=== PATIENT | male | born 1995 | race Caucasian/White ===

== ENCOUNTER 2018-12-17 10:44 | Inpatient (IN) ==
--- NOTE | 2018-12-17 11:03 | Emergency Department Note ---
Disposition Clinical Impression: Suicidal ideation Urinary tract infection Qualifiers: Urinary tract infection type: acute cystitis Hematuria presence: without hematuria Qualified Code(s): N30.00 - Acute cystitis without hematuria Disposition: Admitted As Inpatient Condition: Fair Psych HPI - General Chief Complaint: ED Psychiatric Symptoms Stated Complaint: SI/HI Time Seen by Provider: 12/17/18 11:03 Source: patient Nursing Notes Reviewed: Yes Vital Signs Reviewed: Yes - History of Present Illness HPI Narrative: 23-year-old male presents emergency per concern for suicidal ideations. Patient does not have a specific plan in place, but has had thoughts in the past of using a gun. He is also having homicidal ideations well. He wants to kill his ex-girlfriend's new boyfriend. He does not have a plan to do that. Patient denies any visual hallucinations, but states that he is hearing voices even though he does not know what they are saying. Patient has not taken any other medications not prescribed at this time patient complains of nothing else at this time. - Related Data Home Medications Medication Instructions Recorded Confirmed No Known Home Drugs 12/17/18 12/17/18 Allergies Allergy/AdvReac Type Severity Reaction Status Date / Time No Known Allergies Allergy Verified 12/17/18 15:39 All systems ED: reviewed and negative except as stated. Review of Systems: As Per HPI Constitutional: Denies: fever Cardiovascular: Denies: chest pain Respiratory: Denies: dyspnea Gastrointestinal: Denies: abdominal pain, nausea, vomiting Genitourinary: Denies: dysuria Musculoskeletal: Denies: back pain Psychiatric: Reports: suicidal thoughts, homicidal thoughts, auditory hallucinations Past Medical History - Past Medical History Attestation: Yes The following information was validated with the patient. Medical history: Reports: no medical history Psychiatric history: Reports: no psych history - Social History Smoking Status: Current every day smoker Smokeless Tobacco Status: No Alcohol use: Reports: heavy, recent Drug use: Reports: marijuana Physical Exam - General Limitations: no limitations General appearance: alert, in no apparent distress - Head Head exam: normocephalic - Eye Eye exam: Present: EOMI - ENT ENT exam: mucous membranes moist - Neck Neck exam: Present: trachea midline - Chest Chest inspection: Present: symmetric chest wall rise - Respiratory Respiratory exam: Present: normal lung sounds bilaterally. Absent: respiratory distress, accessory muscle use - Cardiovascular Cardiovascular exam: Present: regular rate, normal rhythm, normal heart sounds - Abdominal Exam Abdominal exam: Present: soft, Non-Tender. Absent: distention, guarding, rebound, rigidity - Extremities Exam Extremities exam: Present: normal capillary refill - Back Exam Back exam: Present: full ROM - Neurological Exam Neurological exam: Present: alert, oriented X3 - Psychiatric Psychiatric exam: Present: homicidal ideation, suicidal ideation - Skin Skin exam: Present: warm, dry, intact, normal color. Absent: rash Course Vital Signs Temperature 98.7 F 12/17/18 10:50 Pulse Rate 129 12/17/18 10:50 Respiratory Rate 16 12/17/18 10:50 Blood Pressure 158/108 12/17/18 10:50 O2 Sat by Pulse Oximetry 96 12/17/18 10:50 Temperature 98.7 F 12/17/18 10:50 Pulse Rate 129 12/17/18 10:50 Respiratory Rate 16 12/17/18 10:50 Blood Pressure 158/108 12/17/18 10:50 O2 Sat by Pulse Oximetry 96 12/17/18 10:50 Oxygen Delivery Oxygen Delivery Room Air Psych - MDM Narrative Medical decision making narrative: 23-year-old male presents emergency Department concern for suicidal homicidal thoughts. Patient is medically stable not in acute distress. Urine appears to have infection. We have given Keflex in the emergency department. 4. We have also ordered a chlamydia and gonorrhea and do not have the results at this time. Patient does not have any other abnormal labs except for urine drug screen positive for amphetamines and THC. Our psychiatric team has come down to about the patient and they stated that what they will admit him under their service. Patient has been pink slipped. Hemodynamically stable not in acute distress at time of admission. - Lab Data Result diagrams: 12/17/18 11:21 12/17/18 11:21 Lab Results 12/17/18 12/17/18 12/17/18 Range/Units 11:21 11:21 12:22 WBC 13.5 H (4.3-11.1) K/mcL RBC 4.86 (4.19-5.50) M/mcL Hgb 14.9 (12.9-16.9) g/dL Hct 43.6 (37.5-50.1) % MCV 89.7 (83.0-100.0) fL MCH 30.7 (28.0-33.3) pg MCHC 34.2 (31.6-35.5) g/dL RDW 12.2 (11.5-14.5) % Plt Count 232 (140-400) K/mcL MPV 10.1 (9.4-12.4) fL Immature Gran % 0.3 (0-4) % Seg Neutrophils % 87.7 % Lymphocytes % 7.4 % Monocytes % 4.5 % Eosinophils % 0.0 % Basophils % 0.1 % Neutrophils # 11.8 H (1.6-8.9) K/mcL Lymphocytes # 1.0 (0.6-4.6) K/mcL Monocytes # 0.6 (0.0-1.3) K/mcL Eosinophils # 0.0 (0.0-0.6) K/mcL Basophils # 0.0 (0.0-0.2) K/mcL Sodium 137 (136-145) mEq/L Potassium 3.4 L (3.5-5.1) mEq/L Chloride 102 (98-107) mEq/L Carbon Dioxide 26 (23-29) mEq/L BUN 9 (6-20) mg/dL Creatinine 1.12 (0.70-1.30) mg/dL Est GFR ( Amer) > 60 (> 60) Est GFR (Non-Af Amer) > 60 (> 60) BUN/Creatinine Ratio 8 (6-26) Glucose 112 H (70-105) mg/dL Calculated Osmolality 283 (280-300) Calcium 9.8 (8.6-10.3) mg/dL Urine Color Dark Yellow (Yellow) Urine Clarity Turbid A (Clear) Urine pH 6.0 (5.0-8.0) pH Units Ur Specific [place] 1.026 H (1.010-1.025) Urine Protein 100 H (Neg-Trace) mg/dL Urine Glucose (UA) Normal (Normal) mg/dL Urine Ketones Trace H (Negative) mg/dL Urine Blood Negative (Negative) Urine Nitrite Negative (Negative) Urine Bilirubin Small H (Negative) Urine Urobilinogen Normal (Normal) mg/dL Ur Leukocyte Esterase Small H (Negative) Urine Microscopic RBC 15-30 H (0-3) per hpf Urine Microscopic WBC TNTC H (0-3) per hpf Ur Squamous Epith Cells Many H (None-Few) per lpf Amorphous Sediment Moderate H (Few) Urine Bacteria Moderate H (None-Few) per hpf Hyaline Casts Few (None-Few) per lpf Salicylates < 2.5 L (15.0-30.0) mg/dL Urine Opiates Screen (Hkmjok=261) ng/mL Acetaminophen < 10 L (10-20) mcg/mL Ur Barbiturates Screen (Kncerv=346) ng/mL Ur Phencyclidine Scrn (Cutoff=25) ng/mL Ur Amphetamines Screen (Svwsni=2236) ng/mL U Benzodiazepines Scrn (Spptjj=127) ng/mL Urine Cocaine Screen (Cutoff= 300) ng/mL U Marijuana (THC) Screen (Cutoff = 50) ng/mL Ur Drug Screen Interp Ethyl Alcohol < 10 (Less than 10) mg/dL 12/17/18 Range/Units 12:25 WBC (4.3-11.1) K/mcL RBC (4.19-5.50) M/mcL Hgb (12.9-16.9) g/dL Hct (37.5-50.1) % MCV (83.0-100.0) fL MCH (28.0-33.3) pg MCHC (31.6-35.5) g/dL RDW (11.5-14.5) % Plt Count (140-400) K/mcL MPV (9.4-12.4) fL Immature Gran % (0-4) % Seg Neutrophils % % Lymphocytes % % Monocytes % % Eosinophils % % Basophils % % Neutrophils # (1.6-8.9) K/mcL Lymphocytes # (0.6-4.6) K/mcL Monocytes # (0.0-1.3) K/mcL Eosinophils # (0.0-0.6) K/mcL Basophils # (0.0-0.2) K/mcL Sodium (136-145) mEq/L Potassium (3.5-5.1) mEq/L Chloride (98-107) mEq/L Carbon Dioxide (23-29) mEq/L BUN (6-20) mg/dL Creatinine (0.70-1.30) mg/dL Est GFR ( Amer) (> 60) Est GFR (Non-Af Amer) (> 60) BUN/Creatinine Ratio (6-26) Glucose (70-105) mg/dL Calculated Osmolality (280-300) Calcium (8.6-10.3) mg/dL Urine Color (Yellow) Urine Clarity (Clear) Urine pH (5.0-8.0) pH Units Ur Specific [place] (1.010-1.025) Urine Protein (Neg-Trace) mg/dL Urine Glucose (UA) (Normal) mg/dL Urine Ketones (Negative) mg/dL Urine Blood (Negative) Urine Nitrite (Negative) Urine Bilirubin (Negative) Urine Urobilinogen (Normal) mg/dL Ur Leukocyte Esterase (Negative) Urine Microscopic RBC (0-3) per hpf Urine Microscopic WBC (0-3) per hpf Ur Squamous Epith Cells (None-Few) per lpf Amorphous Sediment (Few) Urine Bacteria (None-Few) per hpf Hyaline Casts (None-Few) per lpf Salicylates (15.0-30.0) mg/dL Urine Opiates Screen Negative (Chdzgj=661) ng/mL Acetaminophen (10-20) mcg/mL Ur Barbiturates Screen Negative (Hnmiob=471) ng/mL Ur Phencyclidine Scrn Negative (Cutoff=25) ng/mL Ur Amphetamines Screen Positive H (Jjawms=9307) ng/mL U Benzodiazepines Scrn Negative (Ukwtck=772) ng/mL Urine Cocaine Screen Negative (Cutoff= 300) ng/mL U Marijuana (THC) Screen Positive H (Cutoff = 50) ng/mL Ur Drug Screen Interp See Below Ethyl Alcohol (Less than 10) mg/dL Psychiatric Medical Clearance - Medical Clearance Checklist Medical History: No Social History Section defined Current Vitals: Last Vital Signs Temp 98.7 F 12/17/18 10:50 Pulse 129 12/17/18 10:50 Resp 16 12/17/18 10:50 BP 158/108 12/17/18 10:50 Pulse Ox 96 12/17/18 10:50 Psychiatric Lab Panel: Drug Levels and Toxicity 12/17/18 12/17/18 11:21 12:25 Urine Opiates Screen Negative Acetaminophen < 10 L Ur Barbiturates Screen Negative Ur Phencyclidine Scrn Negative Ur Amphetamines Screen Positive H U Benzodiazepines Scrn Negative Urine Cocaine Screen Negative U Marijuana (THC) Screen Positive H Ethyl Alcohol < 10 Abnormal Labs: Abnormal lab results WBC 13.5 K/mcL (4.3-11.1) H 12/17/18 11:21 Neutrophils # 11.8 K/mcL (1.6-8.9) H 12/17/18 11:21 Potassium 3.4 mEq/L (3.5-5.1) L 12/17/18 11:21 Glucose 112 mg/dL (70-105) H 12/17/18 11:21 Urine Clarity Turbid (Clear) A 12/17/18 12:22 Ur Specific [place] 1.026 (1.010-1.025) H 12/17/18 12:22 Urine Protein 100 mg/dL (Neg-Trace) H 12/17/18 12:22 Urine Ketones Trace mg/dL (Negative) H 12/17/18 12:22 Urine Bilirubin Small (Negative) H 12/17/18 12:22 Ur Leukocyte Esterase Small (Negative) H 12/17/18 12:22 Urine Microscopic RBC 15-30 per hpf (0-3) H 12/17/18 12:22 Urine Microscopic WBC TNTC per hpf (0-3) H 12/17/18 12:22 Ur Squamous Epith Cells Many per lpf (None-Few) H 12/17/18 12:22 Amorphous Sediment Moderate (Few) H 12/17/18 12:22 Urine Bacteria Moderate per hpf (None-Few) H 12/17/18 12:22 Salicylates < 2.5 mg/dL (15.0-30.0) L 12/17/18 11:21 Acetaminophen < 10 mcg/mL (10-20) L 12/17/18 11:21 Ur Amphetamines Screen Positive ng/mL (Sdwzai=7118) H 12/17/18 12:25 U Marijuana (THC) Screen Positive ng/mL (Cutoff = 50) H 12/17/18 12:25 Statement of Medical Clearance: I have evaluated the patient, reviewed diagnostic information, and certify that the patient's medical condition is sufficiently stable that transfer to the psychiatric unit does not pose a significant risk of deterioration. Attestation Statement - Attestation Attestation: I, Leopoldo Saucedo DO, examined this patient [id number] and my medical decision-making was reviewed with Dr. Gerry Chin, Resident Physician. I agree with the documented findings, disposition and treatment plan as described except to the extent set forth below. I personally supervised and was present for the win/critical portions of the procedures completed by the resident documented below. Please see my progress notes for details.
[2018-12-17 11:41] LABS: Basophils % 0.1 %; Hematocrit 43.6 % (37.5-50.1); Hemoglobin 14.9 g/dL (12.9-16.9); Immature Granulocytes % 0.3 % (0-4); Lymphocytes % 7.4 %; Mean Corpuscular HGB Conc 34.2 g/dL (31.6-35.5); Mean Corpuscular Hemoglobin 30.7 pg (28.0-33.3); Mean Corpuscular Volume 89.7 fL (83.0-100.0); Mean Platelet Volume 10.1 fL (9.4-12.4); Monocytes # 0.6 K/mcL (0.0-1.3); Monocytes % 4.5 %; Neutrophils # 11.8 K/mcL (1.6-8.9); Platelet Count 232 K/mcL (140-400); Red Blood Count 4.86 M/mcL (4.19-5.50); Red Cell Distribution Width 12.2 % (11.5-14.5); Segmented Neutrophils % 87.7 %
[2018-12-17 11:59] LABS: Acetaminophen < 10 mcg/mL (10-20); BUN/Creatinine Ratio 8 (6-26); Blood Urea Nitrogen 9 mg/dL (6-20); Calcium 9.8 mg/dL (8.6-10.3); Carbon Dioxide 26 mEq/L (23-29); Chloride 102 mEq/L (98-107); Ethanol < 10 mg/dL (Less than 10); Glucose 112 mg/dL (70-105); Osmolality,Calculated 283 (280-300); Potassium 3.4 mEq/L (3.5-5.1); Salicylate < 2.5 mg/dL (15.0-30.0); Sodium 137 mEq/L (136-145); eGFR For Non-African Americans > 60 (> 60)
--- NOTE | 2018-12-17 12:38 | Emergency Department Note ---
Disposition Clinical Impression: Suicidal ideation, Urinary tract infection Disposition: Admitted As Inpatient Condition: Fair Referrals: NONE,PCP [Primary Care Provider] - Forms: ED Satisfaction Letter Time of Disposition: 15:18 General Adult HPI - General Chief complaint: ED Psychiatric Symptoms Stated complaint: SI/HI Time Seen by Provider: 12/17/18 11:03 Source: patient Limitations: no limitations - History of Present Illness Pain Scale: 0 - Related Data Previous Rx's Medication Instructions Recorded Cyclobenzaprine HCl 5 mg PO TID PRN #30 tablet 07/18/15 Hydrocodone/Acetaminophen [[place] 1 each PO Q4H PRN #10 tablet 07/18/15 5-325 Tablet] Ibuprofen [Motrin] 800 mg PO Q6-8H PRN #30 tablet 07/18/15 Allergies Allergy/AdvReac Type Severity Reaction Status Date / Time No Known Allergies Allergy Verified 07/18/15 17:30 Past Medical History - Past Medical History Medical history: Reports: no medical history Psychiatric history: Reports: no psych history - Social History Smoking Status: Current every day smoker Smokeless Tobacco Status: No Alcohol use: Reports: heavy, recent Drug use: Reports: marijuana Physical Exam - General Limitations: no limitations General appearance: alert, in no apparent distress Course Vital Signs Temperature 98.7 F 12/17/18 10:50 Pulse Rate 129 12/17/18 10:50 Respiratory Rate 16 12/17/18 10:50 Blood Pressure 158/108 12/17/18 10:50 O2 Sat by Pulse Oximetry 96 12/17/18 10:50 Temperature 98.7 F 12/17/18 10:50 Pulse Rate 129 12/17/18 10:50 Respiratory Rate 16 12/17/18 10:50 Blood Pressure 158/108 12/17/18 10:50 O2 Sat by Pulse Oximetry 96 12/17/18 10:50 Oxygen Delivery Oxygen Delivery Room Air Medical Decision Making - Lab Data Result diagrams: 12/17/18 11:21 12/17/18 11:21 Lab Results 12/17/18 12/17/18 12/17/18 Range/Units 11:21 11:21 12:22 WBC 13.5 H (4.3-11.1) K/mcL RBC 4.86 (4.19-5.50) M/mcL Hgb 14.9 (12.9-16.9) g/dL Hct 43.6 (37.5-50.1) % MCV 89.7 (83.0-100.0) fL MCH 30.7 (28.0-33.3) pg MCHC 34.2 (31.6-35.5) g/dL RDW 12.2 (11.5-14.5) % Plt Count 232 (140-400) K/mcL MPV 10.1 (9.4-12.4) fL Immature Gran % 0.3 (0-4) % Seg Neutrophils % 87.7 % Lymphocytes % 7.4 % Monocytes % 4.5 % Eosinophils % 0.0 % Basophils % 0.1 % Neutrophils # 11.8 H (1.6-8.9) K/mcL Lymphocytes # 1.0 (0.6-4.6) K/mcL Monocytes # 0.6 (0.0-1.3) K/mcL Eosinophils # 0.0 (0.0-0.6) K/mcL Basophils # 0.0 (0.0-0.2) K/mcL Sodium 137 (136-145) mEq/L Potassium 3.4 L (3.5-5.1) mEq/L Chloride 102 (98-107) mEq/L Carbon Dioxide 26 (23-29) mEq/L BUN 9 (6-20) mg/dL Creatinine 1.12 (0.70-1.30) mg/dL Est GFR ( Amer) > 60 (> 60) Est GFR (Non-Af Amer) > 60 (> 60) BUN/Creatinine Ratio 8 (6-26) Glucose 112 H (70-105) mg/dL Calculated Osmolality 283 (280-300) Calcium 9.8 (8.6-10.3) mg/dL Urine Color Dark Yellow (Yellow) Urine Clarity Turbid A (Clear) Urine pH 6.0 (5.0-8.0) pH Units Ur Specific [place] 1.026 H (1.010-1.025) Urine Protein 100 H (Neg-Trace) mg/dL Urine Glucose (UA) Normal (Normal) mg/dL Urine Ketones Trace H (Negative) mg/dL Urine Blood Negative (Negative) Urine Nitrite Negative (Negative) Urine Bilirubin Small H (Negative) Urine Urobilinogen Normal (Normal) mg/dL Ur Leukocyte Esterase Small H (Negative) Urine Microscopic RBC 15-30 H (0-3) per hpf Urine Microscopic WBC TNTC H (0-3) per hpf Ur Squamous Epith Cells Many H (None-Few) per lpf Amorphous Sediment Moderate H (Few) Urine Bacteria Moderate H (None-Few) per hpf Hyaline Casts Few (None-Few) per lpf Salicylates < 2.5 L (15.0-30.0) mg/dL Urine Opiates Screen (Hhvppv=197) ng/mL Acetaminophen < 10 L (10-20) mcg/mL Ur Barbiturates Screen (Ejmqvz=232) ng/mL Ur Phencyclidine Scrn (Cutoff=25) ng/mL Ur Amphetamines Screen (Pbbpte=2207) ng/mL U Benzodiazepines Scrn (Gkasvo=904) ng/mL Urine Cocaine Screen (Cutoff= 300) ng/mL U Marijuana (THC) Screen (Cutoff = 50) ng/mL Ur Drug Screen Interp Ethyl Alcohol < 10 (Less than 10) mg/dL 12/17/18 Range/Units 12:25 WBC (4.3-11.1) K/mcL RBC (4.19-5.50) M/mcL Hgb (12.9-16.9) g/dL Hct (37.5-50.1) % MCV (83.0-100.0) fL MCH (28.0-33.3) pg MCHC (31.6-35.5) g/dL RDW (11.5-14.5) % Plt Count (140-400) K/mcL MPV (9.4-12.4) fL Immature Gran % (0-4) % Seg Neutrophils % % Lymphocytes % % Monocytes % % Eosinophils % % Basophils % % Neutrophils # (1.6-8.9) K/mcL Lymphocytes # (0.6-4.6) K/mcL Monocytes # (0.0-1.3) K/mcL Eosinophils # (0.0-0.6) K/mcL Basophils # (0.0-0.2) K/mcL Sodium (136-145) mEq/L Potassium (3.5-5.1) mEq/L Chloride (98-107) mEq/L Carbon Dioxide (23-29) mEq/L BUN (6-20) mg/dL Creatinine (0.70-1.30) mg/dL Est GFR ( Amer) (> 60) Est GFR (Non-Af Amer) (> 60) BUN/Creatinine Ratio (6-26) Glucose (70-105) mg/dL Calculated Osmolality (280-300) Calcium (8.6-10.3) mg/dL Urine Color (Yellow) Urine Clarity (Clear) Urine pH (5.0-8.0) pH Units Ur Specific [place] (1.010-1.025) Urine Protein (Neg-Trace) mg/dL Urine Glucose (UA) (Normal) mg/dL Urine Ketones (Negative) mg/dL Urine Blood (Negative) Urine Nitrite (Negative) Urine Bilirubin (Negative) Urine Urobilinogen (Normal) mg/dL Ur Leukocyte Esterase (Negative) Urine Microscopic RBC (0-3) per hpf Urine Microscopic WBC (0-3) per hpf Ur Squamous Epith Cells (None-Few) per lpf Amorphous Sediment (Few) Urine Bacteria (None-Few) per hpf Hyaline Casts (None-Few) per lpf Salicylates (15.0-30.0) mg/dL Urine Opiates Screen Negative (Xdqxft=415) ng/mL Acetaminophen (10-20) mcg/mL Ur Barbiturates Screen Negative (Pvxjuw=146) ng/mL Ur Phencyclidine Scrn Negative (Cutoff=25) ng/mL Ur Amphetamines Screen Positive H (Osnwzp=4244) ng/mL U Benzodiazepines Scrn Negative (Sjdzmw=477) ng/mL Urine Cocaine Screen Negative (Cutoff= 300) ng/mL U Marijuana (THC) Screen Positive H (Cutoff = 50) ng/mL Ur Drug Screen Interp See Below Ethyl Alcohol (Less than 10) mg/dL Attestation Statement - Attestation Attestation: I, Leopoldo Saucedo DO, examined this patient [id number] and my medical decision-making was reviewed with Dr. Gerry Chin, Resident Physician. I agree with the documented findings, disposition and treatment plan as described except to the extent set forth below. I personally supervised and was present for the win/critical portions of the procedures completed by the resident documented below. Please see my progress notes for details. 21-year-old male presents emergency room for evaluation of suicidal ideation auditory hallucinations substance abuse ingestion. Patient is denying chest pain shortness of breath headache or vision change. Denies any nausea vomiting or diarrhea. He has not had any recent fevers or chills. Denies any other symptoms or issues on presentation. Patient does disclose that he hears things throughout the day that are not there. He has not seen anything specifically at this time. Patient denies any other complaints or issues. He denies any ingestion at this point. Vital signs otherwise stable. Medical screening evaluation will be completed. Patient's lungs are clear heart is regular no signs of trauma or injury to the skin. No rashes or lesions. No signs of trauma to the head. Disposition will be determined once full workup treatment course and evaluation have been established by the psychiatric team. Is otherwise stable. See detailed documentation of the physical exam, medical intervention, medical decision-making disposition in the resident physician's note. No critical care applied the patient's treatment course at this time. 1415 Patient will be evaluated by psychiatric team at this time. 1500 Patient evaluated and accepted to the psychiatric suite for admission. Admission process to be established at this time. First dose of antibiotics for concern for possible urinary tract infection secondary to contamination of the urine was started. No other concerns or issues noted this time.
[2018-12-17 12:44] LABS: Bilirubin,Urine Small (Negative); Blood,Urine Negative (Negative); Clarity,Urine Turbid (Clear); Color,Urine Dark Yellow (Yellow); Glucose,Urine (UA) Normal (Normal); Ketones,Urine Trace mg/dL (Negative); Leukocyte Esterase,Urine Small (Negative); Nitrite,Urine Negative (Negative); Protein,Urine 100 mg/dL (Neg-Trace); Specific Gravity,Urine 1.026 (1.010-1.025); Urobilinogen,Urine Normal (Normal)
[2018-12-17 12:46] LABS: RBC,Urine 15-30 per hpf (0-3); Squamous Epithelial Cell,Urine Many per lpf (None-Few); WBC,Urine TNTC per hpf (0-3)
[2018-12-17 13:03] LABS: Hyaline Casts,Urine Few per lpf (None-Few)
[2018-12-17 13:05] LABS: Amorphous Sediment,Urine Moderate (Few); Bacteria,Urine Moderate per hpf (None-Few)
[2018-12-17 13:22] LABS: Amphetamine Screen,Urine Positive ng/mL (Cutoff=1000); Barbiturate Screen,Urine Negative ng/mL (Cutoff=200); Benzodiazepines Screen,Urine Negative ng/mL (Cutoff=200); Cannabinoid Screen,Urine Positive ng/mL (Cutoff = 50); Cocaine Screen,Urine Negative ng/mL (Cutoff= 300); Opiate Screen,Urine Negative ng/mL (Cutoff=300); Phencyclidine Screen,Urine Negative ng/mL (Cutoff=25)
[2018-12-17] MEDS ORDERED: cephALEXin 250 MG CAPSULE PO STA (15:13)
[2018-12-17] MEDS ORDERED: Mag Hydrox/Al Hydrox/Simeth 30 ML UDC PO PRN (16:13)
[2018-12-17] MEDS ORDERED: MOM Conc 10 ML UD.LIQ PO PRN (16:13)
[2018-12-17] MEDS ORDERED: *HR* LORazepam 2 MG/ML VIAL IM PRN (16:13)
[2018-12-17] MEDS ORDERED: Ibuprofen 400 MG TABLET PO PRN (16:13)
[2018-12-17] MEDS ORDERED: *HR* LORazepam 1 MG TABLET PO PRN (16:13)
[2018-12-17] MEDS ORDERED: Haloperidol Lactate 5 MG/ML VIAL IM PRN (16:13)
[2018-12-17] MEDS: hydrOXYzine pamoate 25 MG CAPSULE PO PRN (21:19)
[2018-12-17] MEDS: traZODone 50 MG TABLET PO PRN (21:19)
--- NOTE | 2018-12-18 09:05 | Psychiatry History & Physical ---
Date of Encounter: 12/18/18 Time of Encounter: 09:01 History of Present Illness Patient Stated Chief Complaint: "I want to kill myself" Medicare Admission Attestation: For traditional Medicare patients the provided hospital inpatient services are reasonable and necessary and in the case of services not specified as inpatient-only under 42 CFR 419.22 (n), that they are appropriately provided as inpatient services in accordance 42 CFR 412.3. For Critical Access Hospital the patient may reasonably be expected to be discharged or transferred to a hospital within 96 hours after admission to the Critical Access Hospital. Admitted From: Home Plans for Post Hospital Care: Home History of Present Illness: Mr. Mann is a 23 year old male who presented to the emergency per concern for suicidal ideations with a plan of using a gun (doesn't current have a gun or immediate access but says he knows how to). He is also having homicidal ideations well. He wants to kill his ex-girlfriend's new boyfriend. He does not have a plan to do that. Patient denies any visual hallucinations, but states that he is hearing voices even though he does not know what they are saying. Patient has not taken any other medications not prescribed at this time patient complains of nothing else at this time. He reports sad mood, decreased interests, feelings of guilt and worthlessness, low energy and hopelessness. He denies a history of ashleigh. He reports some vague AH, non-command. No VH. Has exhibited some paranoia on the unit. Says he does feel he can't trust anyone. Past Med Surg Social Fam HX - Past Medical History Source: patient, old records reviewed Medical history: no medical history - Past Psychiatric History Psychiatric history: Reports: depression. Denies: prior suicide attempt, previous psychiatric hospitalization Past psychiatric history details: Says he was seen in [facility] several years ago. He says he was on an antidepressant at that time but couldn't remember the name even with me listing options. He has no prior suicide attempts or hospitalizations. Family psychiatric history: Yes (dad's side etoh) Family History of Suicide: None - Past Surgical History Surgical History: no surgical history - Social History Smoking Status: Current every day smoker Packs per day: <0.5 Smokeless Tobacco Status: No Alcohol use: heavy, recent Drug use: marijuana, methamphetamine Additional substance use detail: meth on the day prior to admission. Daily THC, daily etoh <6, no hx of withdrawal. Occupational status: employed Activity Level: Independent ambulation Recent Out of Country Travel Within the Last 8 Weeks: No Exposure or Possible Exposure to Illness During Travel: No Additional social history: Patient reports he lives with his mom and dad. 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 His 3 year old daughter lives with him. Medications & Allergies No Known Home Drugs 12/17/18 [History] Allergy/AdvReac Type Severity Reaction Status Date / Time No Known Allergies Allergy Verified 12/17/18 15:39 Review of Systems Constitutional: Denies: fever Eyes: Denies: eye pain Ears, Nose, Throat: Denies: ear pain Cardiovascular: Denies: chest pain Respiratory: Denies: cough Gastrointestinal: Denies: abdominal pain Genitourinary male: Reports: urgency, dysuria (treated for UTI in ER) Musculoskeletal: Denies: back pain Integumentary: Denies: rash Neurological: Denies: headache Psychiatric: Reports: depression, abnormal sleep pattern, suicidal ideation, change in appetite, homicidal ideation, auditory hallucinations Endocrine: Reports: fatigue Hematologic/Lymphatic: Denies: easy bleeding Allergic/Immunologic: Denies: facial swelling Exam - HEENT Head exam IM: Present: atraumatic Eye exam IM: Present: normal appearance ENT exam IM: Present: mucous membranes moist - Neurological Neurological exam: Present: CN II-XII intact (grossly) - Respiratory Respiratory exam IM: Absent: respiratory distress - GI/Abdominal GI/Abdominal exam IM: Present: no peritoneal signs - Extremities Extremities exam IM: Absent: cyanotic - Skin Skin exam IM: Absent: abrasion - Constitutional Vitals: Temp Pulse Resp BP Pulse Ox 98.7 F 129 16 158/108 96 12/17/18 10:50 12/17/18 10:50 12/17/18 10:50 12/17/18 10:50 12/17/18 10:50 General appearance: age & developmentally appropriate - Musculoskeletal Gait: normal Station: other Strength & Tone: normal for patient - Psychiatric Patient Orientation: Yes Person, Yes Time, Yes Place Level of alertness: Alert Behavior: calm Psychomotor activity: Normal Eye Contact: Maintains Eye Contact Mood Description: Depressed Patient description of mood: "down" Affect description: dysphoric Speech Volume: Soft/Quiet Speech pattern: normal rate Language & Vocabulary: consistent with education Thought Process: Logical Thought Content: Yes Suicidal ideation, Yes Homicidal ideation, Yes Preoccupation Perceptual Disturbances: Yes Auditory hallucinations Attention Span Ability: Capable of Focused Attention Memory Description: Grossly Intact Patient Reliability: Reliable Historian Fund of knowledge: Yes abstraction ability, Yes average Intelligence Estimate: Average Judgment: Limited Insight: Minimal Results - Drug Levels and Toxicology Drug Levels and Toxicology: Drug Levels and Toxicity 12/17/18 12/17/18 11:21 12:25 Urine Opiates Screen Negative Acetaminophen < 10 L Ur Barbiturates Screen Negative Ur Phencyclidine Scrn Negative Ur Amphetamines Screen Positive H U Benzodiazepines Scrn Negative Urine Cocaine Screen Negative U Marijuana (THC) Screen Positive H Ethyl Alcohol < 10 All Lab Results (24 Hours) 12/17/18 12/17/18 12/17/18 Range/Units 11:21 11:21 12:22 WBC 13.5 H (4.3-11.1) K/mcL RBC 4.86 (4.19-5.50) M/mcL Hgb 14.9 (12.9-16.9) g/dL Hct 43.6 (37.5-50.1) % MCV 89.7 (83.0-100.0) fL MCH 30.7 (28.0-33.3) pg MCHC 34.2 (31.6-35.5) g/dL RDW 12.2 (11.5-14.5) % Plt Count 232 (140-400) K/mcL MPV 10.1 (9.4-12.4) fL Immature Gran % 0.3 (0-4) % Seg Neutrophils % 87.7 % Lymphocytes % 7.4 % Monocytes % 4.5 % Eosinophils % 0.0 % Basophils % 0.1 % Neutrophils # 11.8 H (1.6-8.9) K/mcL Lymphocytes # 1.0 (0.6-4.6) K/mcL Monocytes # 0.6 (0.0-1.3) K/mcL Eosinophils # 0.0 (0.0-0.6) K/mcL Basophils # 0.0 (0.0-0.2) K/mcL Sodium 137 (136-145) mEq/L Potassium 3.4 L (3.5-5.1) mEq/L Chloride 102 (98-107) mEq/L Carbon Dioxide 26 (23-29) mEq/L BUN 9 (6-20) mg/dL Creatinine 1.12 (0.70-1.30) mg/dL Est GFR ( Amer) > 60 (> 60) Est GFR (Non-Af Amer) > 60 (> 60) BUN/Creatinine Ratio 8 (6-26) Glucose 112 H (70-105) mg/dL Calculated Osmolality 283 (280-300) Calcium 9.8 (8.6-10.3) mg/dL Urine Color Dark Yellow (Yellow) Urine Clarity Turbid A (Clear) Urine pH 6.0 (5.0-8.0) pH Units Ur Specific Sharon 1.026 H (1.010-1.025) Urine Protein 100 H (Neg-Trace) mg/dL Urine Glucose (UA) Normal (Normal) mg/dL Urine Ketones Trace H (Negative) mg/dL Urine Blood Negative (Negative) Urine Nitrite Negative (Negative) Urine Bilirubin Small H (Negative) Urine Urobilinogen Normal (Normal) mg/dL Ur Leukocyte Esterase Small H (Negative) Urine Microscopic RBC 15-30 H (0-3) per hpf Urine Microscopic WBC TNTC H (0-3) per hpf Ur Squamous Epith Cells Many H (None-Few) per lpf Amorphous Sediment Moderate H (Few) Urine Bacteria Moderate H (None-Few) per hpf Hyaline Casts Few (None-Few) per lpf Salicylates < 2.5 L (15.0-30.0) mg/dL Urine Opiates Screen (Negoqv=580) ng/mL Acetaminophen < 10 L (10-20) mcg/mL Ur Barbiturates Screen (Uuoqfr=128) ng/mL Ur Phencyclidine Scrn (Cutoff=25) ng/mL Ur Amphetamines Screen (Esqmhs=5715) ng/mL U Benzodiazepines Scrn (Tbkdkk=408) ng/mL Urine Cocaine Screen (Cutoff= 300) ng/mL U Marijuana (THC) Screen (Cutoff = 50) ng/mL Ur Drug Screen Interp Ethyl Alcohol < 10 (Less than 10) mg/dL 12/17/18 Range/Units 12:25 WBC (4.3-11.1) K/mcL RBC (4.19-5.50) M/mcL Hgb (12.9-16.9) g/dL Hct (37.5-50.1) % MCV (83.0-100.0) fL MCH (28.0-33.3) pg MCHC (31.6-35.5) g/dL RDW (11.5-14.5) % Plt Count (140-400) K/mcL MPV (9.4-12.4) fL Immature Gran % (0-4) % Seg Neutrophils % % Lymphocytes % % Monocytes % % Eosinophils % % Basophils % % Neutrophils # (1.6-8.9) K/mcL Lymphocytes # (0.6-4.6) K/mcL Monocytes # (0.0-1.3) K/mcL Eosinophils # (0.0-0.6) K/mcL Basophils # (0.0-0.2) K/mcL Sodium (136-145) mEq/L Potassium (3.5-5.1) mEq/L Chloride (98-107) mEq/L Carbon Dioxide (23-29) mEq/L BUN (6-20) mg/dL Creatinine (0.70-1.30) mg/dL Est GFR ( Amer) (> 60) Est GFR (Non-Af Amer) (> 60) BUN/Creatinine Ratio (6-26) Glucose (70-105) mg/dL Calculated Osmolality (280-300) Calcium (8.6-10.3) mg/dL Urine Color (Yellow) Urine Clarity (Clear) Urine pH (5.0-8.0) pH Units Ur Specific Sharon (1.010-1.025) Urine Protein (Neg-Trace) mg/dL Urine Glucose (UA) (Normal) mg/dL Urine Ketones (Negative) mg/dL Urine Blood (Negative) Urine Nitrite (Negative) Urine Bilirubin (Negative) Urine Urobilinogen (Normal) mg/dL Ur Leukocyte Esterase (Negative) Urine Microscopic RBC (0-3) per hpf Urine Microscopic WBC (0-3) per hpf Ur Squamous Epith Cells (None-Few) per lpf Amorphous Sediment (Few) Urine Bacteria (None-Few) per hpf Hyaline Casts (None-Few) per lpf Salicylates (15.0-30.0) mg/dL Urine Opiates Screen Negative (Dliyeg=594) ng/mL Acetaminophen (10-20) mcg/mL Ur Barbiturates Screen Negative (Aintfu=534) ng/mL Ur Phencyclidine Scrn Negative (Cutoff=25) ng/mL Ur Amphetamines Screen Positive H (Gcmhve=6319) ng/mL U Benzodiazepines Scrn Negative (Phiwcv=266) ng/mL Urine Cocaine Screen Negative (Cutoff= 300) ng/mL U Marijuana (THC) Screen Positive H (Cutoff = 50) ng/mL Ur Drug Screen Interp See Below Ethyl Alcohol (Less than 10) mg/dL - Labs Labs: Laboratory Last Values WBC 13.5 K/mcL (4.3-11.1) H 12/17/18 11:21 RBC 4.86 M/mcL (4.19-5.50) 12/17/18 11:21 Hgb 14.9 g/dL (12.9-16.9) 12/17/18 11:21 Hct 43.6 % (37.5-50.1) 12/17/18 11:21 MCV 89.7 fL (83.0-100.0) 12/17/18 11:21 MCH 30.7 pg (28.0-33.3) 12/17/18 11:21 MCHC 34.2 g/dL (31.6-35.5) 12/17/18 11:21 RDW 12.2 % (11.5-14.5) 12/17/18 11:21 Plt Count 232 K/mcL (140-400) 12/17/18 11:21 MPV 10.1 fL (9.4-12.4) 12/17/18 11:21 Immature Gran % 0.3 % (0-4) 12/17/18 11:21 Seg Neutrophils % 87.7 % 12/17/18 11:21 Lymphocytes % 7.4 % 12/17/18 11:21 Monocytes % 4.5 % 12/17/18 11:21 Eosinophils % 0.0 % 12/17/18 11:21 Basophils % 0.1 % 12/17/18 11:21 Neutrophils # 11.8 K/mcL (1.6-8.9) H 12/17/18 11:21 Lymphocytes # 1.0 K/mcL (0.6-4.6) 12/17/18 11:21 Monocytes # 0.6 K/mcL (0.0-1.3) 12/17/18 11:21 Eosinophils # 0.0 K/mcL (0.0-0.6) 12/17/18 11:21 Basophils # 0.0 K/mcL (0.0-0.2) 12/17/18 11:21 Sodium 137 mEq/L (136-145) 12/17/18 11:21 Potassium 3.4 mEq/L (3.5-5.1) L 12/17/18 11:21 Chloride 102 mEq/L (98-107) 12/17/18 11:21 Carbon Dioxide 26 mEq/L (23-29) 12/17/18 11:21 BUN 9 mg/dL (6-20) 12/17/18 11:21 Creatinine 1.12 mg/dL (0.70-1.30) 12/17/18 11:21 Est GFR ( Amer) > 60 (> 60) 12/17/18 11:21 Est GFR (Non-Af Amer) > 60 (> 60) 12/17/18 11:21 BUN/Creatinine Ratio 8 (6-26) 12/17/18 11:21 Glucose 112 mg/dL (70-105) H 12/17/18 11:21 Calculated Osmolality 283 (280-300) 12/17/18 11:21 Calcium 9.8 mg/dL (8.6-10.3) 12/17/18 11:21 Urine Color Dark Yellow (Yellow) 12/17/18 12:22 Urine Clarity Turbid (Clear) A 12/17/18 12:22 Urine pH 6.0 pH Units (5.0-8.0) 12/17/18 12:22 Ur Specific Sharon 1.026 (1.010-1.025) H 12/17/18 12:22 Urine Protein 100 mg/dL (Neg-Trace) H 12/17/18 12:22 Urine Glucose (UA) Normal mg/dL (Normal) 12/17/18 12:22 Urine Ketones Trace mg/dL (Negative) H 12/17/18 12:22 Urine Blood Negative (Negative) 12/17/18 12:22 Urine Nitrite Negative (Negative) 12/17/18 12:22 Urine Bilirubin Small (Negative) H 12/17/18 12:22 Urine Urobilinogen Normal mg/dL (Normal) 12/17/18 12:22 Ur Leukocyte Esterase Small (Negative) H 12/17/18 12:22 Urine Microscopic RBC 15-30 per hpf (0-3) H 12/17/18 12:22 Urine Microscopic WBC TNTC per hpf (0-3) H 12/17/18 12:22 Ur Squamous Epith Cells Many per lpf (None-Few) H 12/17/18 12:22 Amorphous Sediment Moderate (Few) H 12/17/18 12:22 Urine Bacteria Moderate per hpf (None-Few) H 12/17/18 12:22 Hyaline Casts Few per lpf (None-Few) 12/17/18 12:22 Salicylates < 2.5 mg/dL (15.0-30.0) L 12/17/18 11:21 Urine Opiates Screen Negative ng/mL (Xcmjdn=785) 12/17/18 12:25 Acetaminophen < 10 mcg/mL (10-20) L 12/17/18 11:21 Ur Barbiturates Screen Negative ng/mL (Fcgtqv=033) 12/17/18 12:25 Ur Phencyclidine Scrn Negative ng/mL (Cutoff=25) 12/17/18 12:25 Ur Amphetamines Screen Positive ng/mL (Xkuhyp=4161) H 12/17/18 12:25 U Benzodiazepines Scrn Negative ng/mL (Qqhjix=120) 12/17/18 12:25 Urine Cocaine Screen Negative ng/mL (Cutoff= 300) 12/17/18 12:25 U Marijuana (THC) Screen Positive ng/mL (Cutoff = 50) H 12/17/18 12:25 Ur Drug Screen Interp See Below 12/17/18 12:25 Ethyl Alcohol < 10 mg/dL (Less than 10) 12/17/18 11:21 Assessment and Plan (1) Depression Current visit: Yes Status: Acute Plan: Admit inpatient for safety and stabilization, Close observation, Suicide Precautions per unit protocol, Encourage participation in unit milieu, Group T herapy, Monitor sleep, Monitor appetite Additional Plan: Start zoloft 50mg am for depression. Reviewed Interval hx Review any current labs Pt had an opportunity to ask questions and discuss current treatment plan. Supportive therapy was provided Pt encouraged to consider group or individual therapy Pt was in agreement with treatment plan. Pt was educated on the risks benefits and side effects of current medications and alternatives as well as the risks and benefits of no medication. Risks, benefits, side effects, alternatives discussed w/pt: Yes Patient agreeable to treatment: Yes Plans for Post Hospital Care: Home Estimated Length of Stay (Days): 3 Qualifiers: Depression Type: major depressive disorder Major depression recurrence: recurrent Active/Remission status: currently active Major depression episode severity: severe Psychotic features: without psychotic features Qualified Code(s): F33.2 - Major depressive disorder, recurrent severe without psychotic features
[2018-12-18] MEDS: hydrOXYzine pamoate 25 MG CAPSULE PO PRN (21:39)
[2018-12-18] MEDS: traZODone 50 MG TABLET PO PRN (21:39)
--- NOTE | 2018-12-19 11:34 | Psychiatry Progress Note ---
Date of Encounter: 12/19/18 Time of Encounter: 08:30 Subjective Interval history: Mr. Mann is a 23 year old male that was admitted for suicidal and homicidal ideation, along with drug use and alcohol abuse. Patient is currently denying suicidal and homicidal ideation and auditory and visual hallucinations. He is also denying changes in appetite. He reports no side effects of his medications and reports that he thinks they are working well. Denying any withdrawal symptoms. Patient is requesting HIV and STD testing. His plan when he leaves is to see his daughter and see if he still has a job (works at a [employer] plant). Review of Systems Psychiatric: Reports: depression, abnormal sleep pattern. Denies: suicidal ideation, change in appetite, homicidal ideation, auditory hallucinations Results - Vital Signs Vital Signs: Temp Pulse Resp BP Pulse Ox 98.2 F 98 16 117/83 99 12/19/18 09:00 12/19/18 09:00 12/19/18 09:00 12/19/18 09:00 12/19/18 09:00 Assessment and Plan (1) Suicidal ideation Current visit: Yes Status: Acute Plan: Continue hospitalization, Close observation, Suicide Precautions per unit protocol, Encourage participation in unit milieu, Group Therapy, Monitor sleep, Monitor appetite Additional Plan: 1. Patient is currently denying suicidal ideation, but did admit to it yesterday. Would like to keep patient at least one more day for monitoring. 2. Continue current medications as prescribed. 3. Encourage group participation. 4. Will continue to monitor. 5. Anticipate discharge tomorrow, pending patient's continued improvement. (2) Depression Current visit: Yes Status: Acute Additional Plan: Please see above plan. Risks, benefits, side effects, alternatives discussed w/pt: Yes Patient agreeable to treatment: Yes Qualifiers: Depression Type: major depressive disorder Major depression recurrence: recurrent Active/Remission status: currently active Major depression episode severity: severe Psychotic features: without psychotic features Qualified Code(s): F33.2 - Major depressive disorder, recurrent severe without psychotic features (3) Screening for STD (sexually transmitted disease) Current visit: Yes Status: Acute Additional Plan: Patient would like to be tested for STDs since he feels that he may have been exposed to them. Will do an STD screen. Consult Discharge Plan - Plan Referrals: [facility] [Outside] - 12/31/18 2:30 pm (You have an appointment scheduled for Monday, December 31, 2018 at 2:30 PM with Khadra Raymond for an initial intake assessment. This appointment typically takes 1 1 hours and will cover your current symptoms and goals for treatment. Please complete the New Patient Intake Packet provided to you by [facility] staff and bring this with you to this appointment. Please also bring your insurance card, identification, proof of residence (utility bill or similar piece of mail), and proof of income (if applicable). If you are unable to keep this appointment, please call the office at the number above as soon as possible.) Nasim Alejandro, [Resident] - (Please contact the office at the number above and follow up with your primary care provider as needed. Please keep your primary care provider informed of any changes in your medications or medical conditions. ) - Attending Attestation I examined this patient and my medical decision-making was reviewed with the Resident Physician. I agree with the documented findings, disposition and treatment plan as described except to the extent set forth below. Patient doing well. Calm and cooperative. Psychiatry Exam - Constitutional Vitals: Temp Pulse Resp BP Pulse Ox 98.2 F 98 16 117/83 99 12/19/18 09:00 12/19/18 09:00 12/19/18 09:00 12/19/18 09:00 12/19/18 09:00 General appearance: age & developmentally appropriate Additional observations: Tattoos all over body, including face. - Musculoskeletal Gait: normal Station: relaxed Strength & Tone: normal for patient - Psychiatric Level of alertness: Alert, Follows commands Behavior: calm, cooperative Psychomotor activity: Normal Eye Contact: Maintains Eye Contact Mood Description: Euthymic/stable Patient description of mood: "just woke up" Affect description: euthymic Speech Volume: Normal Speech pattern: normal rate, normal rhythm Language & Vocabulary: consistent with education Thought Process: Intact, Linear, Goal Oriented Thought Content: Yes Intact, No Suicidal ideation, No Homicidal ideation Perceptual Disturbances: No Reacting to internal stimuli Attention Span Ability: Capable of Focused Attention Memory Description: Grossly Intact Patient Reliability: Questionable Historian Fund of knowledge: Yes average Intelligence Estimate: Average Judgment: Fair Insight: Partial
[2018-12-19] MEDS: traZODone 50 MG TABLET PO PRN (21:33)
[2018-12-19] MEDS: hydrOXYzine pamoate 25 MG CAPSULE PO PRN (21:33)
--- NOTE | 2018-12-20 08:21 | Discharge Summary ---
Date of Encounter: 12/20/18 Time of Encounter: 08:19 Diagnosis - Discharge Diagnosis (1) Depression Status: Acute Qualifiers: Depression Type: major depressive disorder Major depression recurrence: r ecurrent Active/Remission status: currently active Major depression episode severity: severe Psychotic features: without psychotic features Qualified Code(s): F33.2 - Major depressive disorder, recurrent severe without psychotic features Medications - Discharge Medications Prescriptions: hydrOXYzine pamoate [HydrOXYzine Pamoate] 25 mg PO TID PRN #15 capsule PRN Reason: Anxiety Sertraline [Zoloft] 50 mg PO DAILY #15 tablet traZODone [TraZODone] 50 mg PO HS PRN #15 tablet PRN Reason: Insomnia Sertraline [Zoloft] 50 mg PO DAILY #15 tablet 12/20/18 [Rx] hydrOXYzine pamoate [HydrOXYzine Pamoate] 25 mg PO TID PRN #15 capsule 12/20/18 [Rx] traZODone [TraZODone] 50 mg PO HS PRN #15 tablet 12/20/18 [Rx] Allergy/AdvReac Type Severity Reaction Status Date / Time No Known Allergies Allergy Verified 12/17/18 15:39 Results Procedures and tests throughout hospitalization: Completed Lab Orders Category Date Time Status Acetaminophen Stat Lab 12/17/18 11:21 Completed Basic Metabolic Panel Stat Lab 12/17/18 11:21 Completed Complete Blood Count [HEME] Stat Lab 12/17/18 11:21 Completed Drug Screen, Urine [UCHEM] Stat Lab 12/17/18 12:25 Completed Ethanol Stat Lab 12/17/18 11:21 Completed RPR [Treponema Pallidum Ab] Routine Lab 12/19/18 12:49 Completed Salicylate Stat Lab 12/17/18 11:21 Completed Urinalysis reflex Microscopic [URIN] Stat Lab 12/17/18 12:22 Completed Laboratory Results - last 72 hr 12/17/18 12/17/18 12/17/18 11:21 11:21 12:22 WBC 13.5 H RBC 4.86 Hgb 14.9 Hct 43.6 MCV 89.7 MCH 30.7 MCHC 34.2 RDW 12.2 Plt Count 232 MPV 10.1 Immature Gran % 0.3 Seg Neutrophils % 87.7 Lymphocytes % 7.4 Monocytes % 4.5 Eosinophils % 0.0 Basophils % 0.1 Neutrophils # 11.8 H Lymphocytes # 1.0 Monocytes # 0.6 Eosinophils # 0.0 Basophils # 0.0 Sodium 137 Potassium 3.4 L Chloride 102 Carbon Dioxide 26 BUN 9 Creatinine 1.12 Est GFR ( Amer) > 60 Est GFR (Non-Af Amer) > 60 BUN/Creatinine Ratio 8 Glucose 112 H Calculated Osmolality 283 Calcium 9.8 Urine Color Dark Yellow Urine Clarity Turbid A Urine pH 6.0 Ur Specific [place] 1.026 H Urine Protein 100 H Urine Glucose (UA) Normal Urine Ketones Trace H Urine Blood Negative Urine Nitrite Negative Urine Bilirubin Small H Urine Urobilinogen Normal Ur Leukocyte Esterase Small H Urine Microscopic RBC 15-30 H Urine Microscopic WBC TNTC H Ur Squamous Epith Cells Many H Amorphous Sediment Moderate H Urine Bacteria Moderate H Hyaline Casts Few Salicylates < 2.5 L Urine Opiates Screen Acetaminophen < 10 L Ur Barbiturates Screen Ur Phencyclidine Scrn Ur Amphetamines Screen U Benzodiazepines Scrn Urine Cocaine Screen U Marijuana (THC) Screen Ur Drug Screen Interp Ethyl Alcohol < 10 T.pallidum Ab Interpret 12/17/18 12/19/18 12:25 12:49 WBC RBC Hgb Hct MCV MCH MCHC RDW Plt Count MPV Immature Gran % Seg Neutrophils % Lymphocytes % Monocytes % Eosinophils % Basophils % Neutrophils # Lymphocytes # Monocytes # Eosinophils # Basophils # Sodium Potassium Chloride Carbon Dioxide BUN Creatinine Est GFR ( Amer) Est GFR (Non-Af Amer) BUN/Creatinine Ratio Glucose Calculated Osmolality Calcium Urine Color Urine Clarity Urine pH Ur Specific [place] Urine Protein Urine Glucose (UA) Urine Ketones Urine Blood Urine Nitrite Urine Bilirubin Urine Urobilinogen Ur Leukocyte Esterase Urine Microscopic RBC Urine Microscopic WBC Ur Squamous Epith Cells Amorphous Sediment Urine Bacteria Hyaline Casts Salicylates Urine Opiates Screen Negative Acetaminophen Ur Barbiturates Screen Negative Ur Phencyclidine Scrn Negative Ur Amphetamines Screen Positive H U Benzodiazepines Scrn Negative Urine Cocaine Screen Negative U Marijuana (THC) Screen Positive H Ur Drug Screen Interp See Below Ethyl Alcohol T.pallidum Ab Interpret Negative Provider Date of admission: 12/17/18 15:23 Primary care physician: PCP NONE Discharging clinician: Velvet Ko Psychiatry Exam - Constitutional Vitals: Temp Pulse Resp BP Pulse Ox 98.8 F 81 16 130/85 98 12/19/18 21:00 12/19/18 21:00 12/19/18 21:00 12/19/18 21:00 12/19/18 21:00 General appearance: age & developmentally appropriate, well-groomed, well- nourished - Musculoskeletal Gait: normal Station: relaxed Strength & Tone: normal for patient - Psychiatric Patient Orientation: Yes Person, Yes Time, Yes Place Level of alertness: Alert Behavior: calm, cooperative Psychomotor activity: Normal Eye Contact: Maintains Eye Contact Mood Description: Euthymic/stable Patient description of mood: Good Affect description: congruent with mood, full range Speech Volume: Normal Speech pattern: normal rate, normal rhythm, normal tone, fluent, spontaneous Language & Vocabulary: consistent with education Thought Process: Linear, Goal Oriented Thought Content: No Suicidal ideation, No Homicidal ideation, No Overt delusions Perceptual Disturbances: No Auditory hallucinations, No Visual hallucinations Attention Span Ability: Capable of Focused Attention Memory Description: Grossly Intact Patient Reliability: Reliable Historian Fund of knowledge: Yes abstraction ability, Yes aware of current events Intelligence Estimate: Average Judgment: Good Insight: Full Hospital Course Hospital course: Mr. Mann is a 23 year old male who presented to the emergency per concern for suicidal ideations with a plan of using a gun (doesn't current have a gun or immediate access but says he knows how to). There was also some notation regarding homicidal ideations however he stated these were not recent thoughts and that he currently has no pot, intention, or plan to harm anyone. He was started on Zoloft for depression and anxiety as well as when necessary Vistaril for anxiety and when necessary trazodone for insomnia.Patient was educated of diagnosis and the risk-benefit side effects of this alternative treatment options and was monitored for responsiveness and side effects. Mood anxiety sleep and appetite interest improved as did future orientation. Self-harm thoughts subsided, no psychosis, no thoughts of harming anyone else, and mood stabilized. Patient was able to attend both individual and group therapy sessions as well as meet with the psychiatrist daily and urged to discuss any medication or treatment issues or other concerns. The patient was educated p rimarily by verbal means about their diagnosis and manifestations in their life. The option for treatment including group and individual therapy programming was offered to the patient in addition to the use of medications with all their potential risks, benefits, and side effects as well as the risks of not taking medication and non-adhereance were discussed with the patient at length. The patient was given the opportunity to ask questions and was noted to participate in the treatment in the planning process. The patient felt ready and eager to be discharged from the inpatient psychiatric unit to continue on with treatment as an outpatient. The patient agreed that is they were safe for this disposition. The patient was considered to be able to participate in informed consent and decision making with respect to medical, legal, and financial issues of the time of discharge. At the time of discharge the patient adamantly denied any concerns for lethality including suicidal or homicidal thoughts ideations or plans and was future oriented toward ongoing mental health care, medical follow-up and sobriety. Time spent discussing smoking cessation with patient: 3 to 10 minutes Does patient wish to continue nicotine replacement upon disc: No - Time Spent with Patient Total time spent providing and/or coordinating discharge services: 25 Less than 30 minutes Specific discharge activities: Interval history reviewed. Available labs reviewed . Psychotherapy provided. Patient had an opportunity to ask questions and address concerns. Patient was in agreement with the treatment plan. The risks benefits and side effects of medications were discussed with the patient, including alternatives and treatment. The patient was educated on the abstaining from any alcohol or illicit substances, following up with all scheduled appointments, and taking all medications as prescribed. The patient was educated on 90 meetings in 90 days and to find a sponsor. Assessment and Plan - Patient/Caregiver Discharge Instructions Activity: resume usual activities as tolerated, return to work Diet: regular diet Additional Instructions: Continue current medications. Follow up with outpatient mental health. Encourage continued therapy in a group or individual setting. The patient was discharged to home. - Follow up Plan Follow up with: Peter [facility] [Outside] - 12/31/18 2:30 pm (You have an appointment scheduled for Monday, December 31, 2018 at 2:30 PM with Khadra Raymond for an initial intake assessment. This appointment typically takes 1 1 hours and will cover your current symptoms and goals for treatment. Please complete the New Patient Intake Packet provided to you by staff and bring this with you to this appointment. Please also bring your insurance card, identification, proof of residence (utility bill or similar piece of mail), and proof of income (if applicable). If you are unable to keep this appointment, please call the office at the number above as soon as possible.) Alejandro,Nasim, DO [Resident] - (Please contact the office at the number above and follow up with your primary care provider as needed. Please keep your primary care provider informed of any changes in your medications or medical conditions. ) Functional capacity at discharge: independent ambulation Overall status at discharge: Stable Disposition: Home, Self-Care Quality - Multiple Antipsychotics Patient discharged on 2 or more antipsychotic medications: No Procedures - Procedures Procedures: Medication Management, Crisis Stabilization, Supportive Therapy, Group Therapy, Psychoeducational Therapy
[2018-12-20 09:30] VITALS: BP 112/81
== END 2018-12-20 10:45 | disposition home or self-care (01) | DRG 885 ==
LOC: EMEROOARM 10:44 → 1ANU 15:23
PROVIDERS: ADMIT Psychiatry & Neurology Psychiatry; ATTEND Psychiatry & Neurology Psychiatry